=== PATIENT | female | born 1950 | race Native Hawaiian/Other Pacific Islander ===

== ENCOUNTER 2022-05-18 09:41 | Day surgery (SDC) | payer MEDICARE, BC ==
[2022-05-18] MEDS ORDERED: Lactated Ringers 1,000 ML IV SCH (10:30)
[2022-05-18] MEDS ORDERED: Lactated Ringers 1,000 ML IV ONE (10:32)
[2022-05-18] MEDS ORDERED: DIPRIVAN 200 MG/20 ML IV ONE (12:01)
[2022-05-18] MEDS ORDERED: Xylocaine-Mpf 2% 5 Ml Vial ONE (12:01)
[2022-05-18] MEDS ORDERED: Versed 2 MG/2 ML Injection ONE (12:02)
[2022-05-18] MEDS ORDERED: Ketamine HCl 50 MG/ML ONE (12:02)
[2022-05-18 13:03] VITALS: BP 185/74; PULSE 69; O2SAT 97
--- NOTE | 2022-06-16 11:57 | OP ---
PROCEDURE DATE/TIME: 05/18/2022 1210 PREOPERATIVE DIAGNOSIS: Gastroesophageal reflux disease despite proton pump inhibitor therapy. POSTOPERATIVE DIAGNOSES: 1) Gastroesophageal reflux disease. 2) Minimal gastritis. PROCEDURE: EGD with biopsy. PROCEDURE PERFORMED BY: Kerri Tidwell M.D. ESTIMATED BLOOD LOSS: Minimal. ANESTHESIA: MAC. COMPLICATIONS: None. SPECIMEN: Antral biopsy. HISTORY: This is a patient who presents for EGD. She is having reflux despite being on proton pump inhibitor therapy. Risks, benefits, alternatives regarding EGD have been discussed with her. Her H&P and consent have been reviewed and confirmed. She was seen personally. DESCRIPTION OF PROCEDURE: She was then brought back to the endoscopy suite, laid in the left lateral decubitus position. The scope was then inserted gently into the mouth, oropharynx down to the esophagus, stomach and duodenum. The scope was advanced approximately to the level of the second portion of the duodenum. The duodenum appeared to be normal. The scope was carefully withdrawn. Back in the stomach she did have some minimal gastritis with very minimal erythema. I did take antral biopsies to rule out Helicobacter pylori. These sites were hemostatic and the specimen was sent to pathology. We did a retroflex view. Her hiatus looks okay. I did not find any other findings throughout the stomach. Everything appears to be benign. The scope was then carefully withdrawn to the level of the gastroesophageal junction. She does have some free flow reflux here in the distal esophagus and then the scope was completely withdrawn. The remainder of the esophagus looked normal. The patient tolerated the procedure very well. There were no immediate complications. PLAN: Anti-reflux diet and lifestyle, continue proton pump inhibitor therapy and then follow up as an outpatient. Can consider further testing and evaluation if the diet and lifestyle changes do not improve the reflux symptoms.
== END 2022-05-18 13:30 | disposition home or self-care (01) ==
LOC: SDC 09:41
PROVIDERS: ATTEND Surgery
DX: K29.70 Gastritis, unspecified, without bleeding (principal); K21.9 Gastro-esophageal reflux disease without esophagitis
CPT/HCPCS: 88305; 99100; J2250; J2704